=== PATIENT | male | born 1970 | race Caucasian/White ===

== ENCOUNTER 2016-07-22 13:29 | Emergency (ER) | payer BC ==
[2016-07-22] MEDS ORDERED: ONDANSETRON DISINTEGRATING 4 MG TAB ONE (13:50)
[2016-07-22] MEDS ORDERED: ONDANSETRON DISINTEGRATING 4 MG TAB PO ONE (13:54)
[2016-07-22 13:56] VITALS: O2SAT 96
[2016-07-22] MEDS ORDERED: ACETAMINOPHEN 500 MG TAB PO ONE (14:34)
[2016-07-22] MEDS ORDERED: NS 1,000 ML IV ONE ×2 (14:34→15:27)
--- NOTE | 2016-07-22 14:38 | UCPHY ---
H & P Patient Type: New Smoking Status: Never smoked Time Seen by Provider: 07/22/16 13:59 HPI/ROS: CHIEF COMPLAINT: Cough, myalgias, vomiting, fever HISTORY OF PRESENT ILLNESS: 46-year-old male presents to urgent care by private vehicle complaining of cough, general malaise and feeling feverish and chilled. He has had multiple episodes of vomiting and has urinated very little today. No diarrhea. No known ill contacts. Did not receive the flu shot. No back pain. No rash. No chest pain or difficulty breathing. No abdominal pain. No recent travel. REVIEW OF SYSTEMS: Constitutional: Subjective fevers, chills Eyes: No double or blurry vision. ENT: No sore throat. Respiratory: Cough as above. no shortness of breath. Cardiac: No chest pain. Gastrointestinal: Vomiting. No abdominal pain or diarrhea Genitourinary: No dysuria. Musculoskeletal: No neck or back pain. Skin: No rashes. Neurological: Headache (Becky Traylor) Past Medical/Surgical History: Negative (Becky Traylor) Social History: and lives in [place] (Becky Traylor) Physical Exam: General Appearance: Alert, mild distress. Shaking chills. Repeat temperature 39.2 131/63 Eyes: Pupils equal and round. Extraocular motions are all intact. ENT: Mouth: Mucous membranes moist. Respiratory: No wheezing, rhonchi, or rales, lungs are clear to auscultation. Cardiovascular: Regular rate and rhythm. Gastrointestinal: Abdomen is soft and nontender, no masses, no rebound or guarding, bowel sounds normal. Neurological: Alert and oriented x 3, cranial nerves II through XII grossly intact Skin: Warm and dry, no rashes. Musculoskeletal: Nontender to palpate along the cervical, thoracic or lumbar spine. Neck is supple. No nuchal rigidity. Extremities: Full range of motion and no peripheral edema. Psychiatric: Patient is oriented X 3, there is no agitation. (eBcky Traylor) Constitutional: Initial Vital Signs Temperature (C) 36.8 C 07/22/16 13:54 Heart Rate 108 H 07/22/16 13:54 Respiratory Rate 20 07/22/16 13:54 Blood Pressure 131/63 H 07/22/16 13:54 O2 Sat (%) 96 07/22/16 13:54 O2 Delivery Mode Room Air Allergies/Adverse Reactions: hydrocodone Allergy (Verified 07/22/16 13:53) oxycodone Allergy (Verified 07/22/16 13:53) Home Medications: Medication Instructions Recorded Ondansetron Odt [Zofran Odt] 4 mg PO Q4PRN #5 tab 07/22/16 Oseltamivir Phosphate [Tamiflu] 75 mg PO BID #10 cap 07/22/16 PRILOSEC 07/22/16 Medical Decision Making ED Course/Re-evaluation: 46-year-old male presents with vomiting, cough and general myalgias. Fever started 2 days ago. Influenza swab is pending. Because the patient has had decreased urine output and has been vomiting multiple times, an IV was established the patient was given IV normal saline. The patient received 1000 mg of acetaminophen p. o.. He also received Toradol 30 mg IV. He received 2 L of IV normal saline was feeling much better. His temperature came down. Ambulated to the bathroom. He is comfortable being discharged home. I think this patient likely has influenza. I offered Tamiflu and the patient agreed. Tamiflu twice daily for 5 days. I also gave him prescription for Zofran to take home. Encouraged to return if he developed difficulty breathing , recurring vomiting, or if he felt worse in any way. (Becky Traylor) Differential Diagnosis: Including but not limited to influenza, gastritis, dehydration, viral upper respiratory infection, acute appendicitis (Becky Traylor) Other Provider: The patient was evaluated and managed by the Physician Hand Roller. My co- signature indicates that I have reviewed this chart and I agree with the findings and plan of care as documented. I am the secondary supervising physician. (Melida Bailey) - Data Points Laboratory Results: Laboratory Results 07/22/16 14:45 07/22/16 14:45 07/22/16 07/22/16 14:50 14:45 WBC 3.82 10^3/uL (3.80-9.50) RBC 5.30 10^6/uL (4.40-6.38) Hgb 15.7 g/dL (13.7-17.5) Hct 42.8 % (40.0-51.0) MCV 80.8 L fL (81.5-99.8) MCH 29.6 pg (27.9-34.1) MCHC 36.7 g/dL (32.4-36.7) RDW 12.6 % (11.5-15.2) Plt Count 91 L 10^3/uL (150-400) MPV 9.3 fL (8.7-11.7) Neut % (Auto) 81.6 H % (39.3-74.2) Lymph % (Auto) 9.7 L % (15.0-45.0) Lares % (Auto) 8.1 % (4.5-13.0) Eos % (Auto) 0.0 L % (0.6-7.6) Baso % (Auto) 0.3 % (0.3-1.7) Nucleat RBC Rel Count 0.0 % (0.0-0.2) Absolute Neuts (auto) 3.12 10^3/uL (1.70-6.50) Absolute Lymphs (auto) 0.37 L 10^3/uL (1.00-3.00) Absolute Monos (auto) 0.31 10^3/uL (0.30-0.80) Absolute Eos (auto) 0.00 L 10^3/uL (0.03-0.40) Absolute Basos (auto) 0.01 L 10^3/uL (0.02-0.10) Absolute Nucleated RBC 0.00 10^3/uL (0-0.01) Immature Gran % 0.3 % (0.0-1.1) Immature Gran # 0.01 10^3/uL (0.00-0.10) Sodium 138 mEq/L (134-144) Potassium 3.4 L mEq/L (3.5-5.2) Chloride 105 mEq/L (97-110) Carbon Dioxide 22 mEq/l (22-31) Anion Gap 11 mEq/L (8-16) BUN 13 mg/dL (7-23) Creatinine 1.0 mg/dL (0.7-1.3) Estimated GFR > 60 Glucose 118 H mg/dL (70-100) Calcium 8.6 mg/dL (8.5-10.4) Influenza Typ A,B (DFA) NEGATIVE FOR FLU (NEGATIVE) Medications Given: Discontinued Medications Acetaminophen (Tylenol) 1,000 mg PO EDNOW ONE Stop: 07/22/16 14:35 Last Admin: 07/22/16 15:00 Dose: 1,000 mg Sodium Chloride (Ns) 1,000 mls @ 0 mls/hr IV ONCE ONE PRN Reason: Wide Open Stop: 07/22/16 14:35 Last Admin: 07/22/16 14:45 Dose: 1,000 mls Sodium Chloride (Ns) 1,000 mls @ 0 mls/hr IV ONCE ONE PRN Reason: Wide Open Stop: 07/22/16 15:28 Last Admin: 07/22/16 15:30 Dose: 1,000 mls Ketorolac Tromethamine (Toradol) 30 mg IVP EDNOW ONE Stop: 07/22/16 15:09 Last Admin: 07/22/16 15:26 Dose: 30 mg Ondansetron HCl (Zofran Odt) 4 mg PO EDNOW ONE Stop: 07/22/16 13:55 Last Admin: 07/22/16 13:56 Dose: 4 mg Departure - Departure Disposition: Home, Routine, Self-Care Clinical Impression: Vomiting, Influenza Condition: Good Instructions: Acute Nausea and Vomiting (ED), Influenza (ED) Additional Instructions: Adult Pain & Fever Control: We recommend Acetaminophen (Tylenol) and Ibuprofen (Motrin,Advil) for pain and fever control. When fever is high or pain severe, both drugs can be used at the same time, but at different intervals. Please note the time differences. Your dose is: Acetaminophen 1000mg every 4 to 6 hours Ibuprofen 600mg every 8 hours with food Note: do not take Acetaminophen with Hydrocodone (Vicodin, Lortab) or Oycodone (Percocet). These medications also contain Acetaminophen. No more than 3000mg of Acetaminophen should be taken in 24 hours (for an adult). Tamiflu twice daily for 5 days. Zofran as needed for nausea. Return if you developed recurring vomiting, if he developed abdominal pain, or if you feel worse in any way. Referrals: Checo Kowalski MD [Primary Care Provider] - As per Instructions Prescriptions: Oseltamivir Phosphate [Tamiflu] 75 mg PO BID #10 cap Ondansetron Odt [Zofran Odt] 4 mg PO Q4PRN #5 tab - PQRS PQRS Measurement: Not applicable (Becky Traylor)
[2016-07-22 14:50] LABS: % IMMATURE GRANULYOCYTES 0.3 % (0.0-1.1); ABSOLUTE IMMATURE GRANULOCYTES 0.01 10^3/uL (0.00-0.10); ADD DIFF? NO; ADD MORPH? NO; ADD SCAN? NO; ATYPICAL LYMPHOCYTE FLAG 0 (0-99); FRAGMENT RBC FLAG 0 (0-99); HEMATOCRIT 42.8 % (40.0-51.0); HEMOGLOBIN 15.7 g/dL (13.7-17.5); LEFT SHIFT FLG 10 (0-99); LIPEMIA HEMOLYSIS FLAG 90 (0-99); MEAN CELL HEMOGLOBIN 29.6 pg (27.9-34.1); MEAN CELL HEMOGLOBIN CONCENTR. 36.7 g/dL (32.4-36.7); MEAN CELL VOLUME 80.8 fL (81.5-99.8); MEAN PLATELET VOLUME 9.3 fL (8.7-11.7); PLATELET CLUMPS FLAG 0 (0-99); PLATELET COUNT 91 10^3/uL (150-400); RED CELL DISTRIBUTION WIDTH 12.6 % (11.5-15.2)
[2016-07-22 15:03] LABS: ANION GAP 11 mEq/L (8-16); CALCIUM 8.6 mg/dL (8.5-10.4); CARBON DIOXIDE 22 mEq/l (22-31); CHLORIDE 105 mEq/L (97-110); GLOMERULAR FILTRATION RATE > 60; GLUCOSE 118 mg/dL (70-100); POTASSIUM 3.4 mEq/L (3.5-5.2); SODIUM 138 mEq/L (134-144)
[2016-07-22] MEDS ORDERED: KETOROLAC 30 MG/1 ML SDV IVP ONE (15:08)
[2016-07-22 16:50] VITALS: BP 120/75; PULSE 72; RESP 16; TEMP 99
== END 2016-07-22 16:50 | disposition home or self-care (01) ==
LOC: CED 13:29
DX: R05 Cough (principal); M79.1 Myalgia; R11.10 Vomiting, unspecified; R51 Headache
CPT/HCPCS: 80048-PO; 85025-PO; 87400-PO; 96361-PO; 96374-PO; 96375-PO; G0463-PO; J1885

== ENCOUNTER 2017-03-22 08:06 | Emergency (ER) | payer BC ==
[2017-03-22 08:19] VITALS: BP 132/87; PULSE 57; RESP 18; TEMP 98.1; O2SAT 97
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
== END 2017-03-22 09:03 | disposition home or self-care (01) ==
LOC: CED 08:06
DX: S69.91XA Unspecified injury of right wrist, hand and finger(s), initial encounter (principal); V18.2XXA Unspecified pedal cyclist injured in noncollision transport accident in nontraffic accident, initial encounter
CPT/HCPCS: 73130-PO; L3807